=== PATIENT | male | born 1990 | race Caucasian/White ===

== ENCOUNTER 2021-03-19 20:01 | Emergency (ER) | payer OTHER ==
[~2021-03-19] VITALS: Ht 180.3 cm; Wt 96.1 kg
--- NOTE | 2021-03-19 20:12 | NUR ---
EKG DONE IN TRIAGE.
[2021-03-19] MEDS ORDERED: ACETAMINOPHEN 500 MG TABLET PO ONE (20:30)
[2021-03-19] MEDS ORDERED: ACETAMINOPHEN 500 MG TABLET ONE (20:46)
[2021-03-19] MEDS ORDERED: LACTATED RINGERS 1,000 ML IVBOLUS ONE ×2 (21:00→22:30)
[2021-03-19] MEDS ORDERED: PLEASE ENTER ALLERGIES MC SCH (21:00)
--- NOTE | 2021-03-19 21:00 | NUR ---
LAB AT BEDSIDE FOR 1 BLOOD CULTURES AND FULL SET OF LABS INCLUDING LACTATE, AIRBORNE OPERATIONS SUPERINTENDENT PLACED PIV FROM WHICH 1 SET OF BLOOD CULTURES DRAWN THEN 2L LR INITIATED. MEDICATED WITH APAP FOR FEVER WELL
--- NOTE | 2021-03-19 21:01 | NUR ---
DROPLET PLUS PRECAUTIONS PLACED. PATIENT REPORTS COUGH & FEVERS
[2021-03-19 21:05] LABS: BASOPHILS % (AUTO) 1 % (0-1); EOSINOPHILS % (AUTO) 1 % (1-7); LYMPHOCYTES % (AUTO) 14 % (22-44); MEAN CORPUSCULAR HEMOGLOBIN 26.5 pg (27.5-34.5); MEAN PLATELET VOLUME 7.8 fL (7.4-10.4); MONOCYTES % (AUTO) 9 % (2-9); NEUTROPHILS % (AUTO) 76 % (42-75); PLATELET COUNT 327 x10^3/uL (130-400); RED BLOOD COUNT 3.61 x10^6/uL (4.38-5.82); RED CELL DISTRIBUTION WIDTH 20.1 % (9.4-14.8)
--- NOTE | 2021-03-19 21:15 | NUR ---
ERP ASKED FOR ABX
[2021-03-19 21:19] LABS: ALANINE AMINOTRANSFERASE 20 U/L (12-78); ALBUMIN 2.2 g/dL (3.4-5.0); ANION GAP 8 mmol/L (5-15); CALCIUM 8.3 mg/dL (8.5-10.1); CHLORIDE 104 mmol/L (98-107); CREATININE 0.93 mg/dL (0.7-1.3)
[2021-03-19 21:21] LABS: ALKALINE PHOSPHATASE 87 U/L (45-117); BILIRUBIN,TOTAL 0.3 mg/dL (0.2-1.0)
[2021-03-19] MEDS ORDERED: KETOROLAC 30 MG/1 ML IVPush ONE (21:30)
--- NOTE | 2021-03-19 21:36 | NUR ---
CC [facility] SENT
[2021-03-19] MEDS ORDERED: KETOROLAC 30 MG/1 ML ONE (21:38)
[2021-03-19] MEDS ORDERED: DOXYCYCLINE 100MG TABLET ONE (21:49)
[2021-03-19 21:51] LABS: MICROSCOPIC INDICATED
[2021-03-19 21:56] LABS: AMPHETAMINE SCREEN, URINE Negative (Negative); BARBITURATE SCREEN, URINE Negative (Negative); BENZODIAZEPINE SCREEN, URINE Negative (Negative); CANNABINOID SCREEN, URINE Positive (Negative); COCAINE SCREEN, URINE Negative (Negative); METHADONE SCREEN, URINE Negative (Negative); OPIATE SCREEN, URINE Negative (Negative)
[2021-03-19] MEDS ORDERED: DOXYCYCLINE 100MG TABLET PO ONE (22:00)
[2021-03-19] MEDS ORDERED: CEFTRIAXONE 1,000 MG in DEXTROSE 5% 50 ML IVPB ONE (22:00)
[2021-03-19 22:18] VITALS: BP 125/76
[2021-03-19] MEDS ORDERED: DIPHENHYDRAMINE 50 MG/ML, 1ML ONE (22:29)
[2021-03-19] MEDS ORDERED: METOCLOPRAMIDE 5 MG/ML, 2ML ONE (22:29)
[2021-03-19] MEDS ORDERED: DIPHENHYDRAMINE 50 MG/ML, 1ML IVPush ONE (22:30)
[2021-03-19] MEDS ORDERED: METOCLOPRAMIDE 5 MG/ML, 2ML IVPush ONE (22:30)
--- NOTE | 2021-03-19 22:42 | NUR ---
PT RESTING AT THIS TIME. DENIES NEEDS. ABX FINISHED, IVF RUNNING. TBDC PER PROVIDERS.
--- NOTE | 2021-03-19 22:48 | NUR ---
report to angelito chinchilla
--- NOTE | 2021-03-19 23:22 | NUR ---
Patient/Caregiver given discharge instructions and they have confirmed that they understand the instructions. Patient ambulatory with steady gait. NAD, all questions answered appropriately, denies additional needs at this time. No personal belongings left in room after discharge.
[2021-03-21] MEDS ORDERED: doxycycline PO (15:00)
[2021-03-21] MEDS ORDERED: metoprolol tartrate PO (15:00)
[2021-03-21] MEDS ORDERED: MULT-658 PO (15:00)
[2021-03-21] MEDS ORDERED: GABA100C PO (15:00)
[2021-03-21] MEDS ORDERED: MIDO5TAB9 PO (15:00)
[2021-03-21] MEDS ORDERED: ASPI-963 PO (15:00)
[2021-03-21] MEDS ORDERED: MAGN400T9 PO (15:00)
[2021-03-21] MEDS ORDERED: quetiapine PO (15:00)
[2021-03-21] MEDS ORDERED: OMEP-110 PO (15:00)
== END 2021-03-19 23:23 | disposition home or self-care (01) ==
LOC: ED 20:28
DX: A41.9 Sepsis, unspecified organism (principal); Z20.822 Contact with and (suspected) exposure to COVID-19; J18.9 Pneumonia, unspecified organism; R00.0 Tachycardia, unspecified
CPT/HCPCS: 36415; 71045; 80053; 80307; 81001; 83605; 84145; 85025; 87040; 87077; 87086; 87147; 87186; 93005; 96361; 96365; 96375; 99285; J0696; J1200; J1885; J2765; J7120; U0003; U0005